=== PATIENT | male | born 1995 | race Caucasian/White ===

== ENCOUNTER 2017-11-07 02:59 | Emergency (ER) | payer OTHER ==
[~2017-11-07] VITALS: Ht 170.2 cm; Wt 72.1 kg
[2017-11-07 03:14] VITALS: Ht 170.2 cm; Wt 72.1 kg
[2017-11-07 04:05] VITALS: BP 138/82
== END 2017-11-07 04:05 | disposition home or self-care (01) ==
LOC: ED 02:59
DX: R00.2 Palpitations (principal); T43.611A Poisoning by caffeine, accidental (unintentional), initial encounter; F41.9 Anxiety disorder, unspecified

== ENCOUNTER 2018-07-22 21:37 | Emergency (ER) | payer OTHER ==
[~2018-07-22] VITALS: Ht 170.2 cm; Wt 71.9 kg
[2018-07-22 21:42] VITALS: Ht 170.2 cm; Wt 71.9 kg
[2018-07-22 23:07] VITALS: BP 151/82
== END 2018-07-22 23:07 | disposition home or self-care (01) ==
LOC: ED 21:37
DX: J02.9 Acute pharyngitis, unspecified (principal); R05 Cough; R06.02 Shortness of breath

== ENCOUNTER 2019-05-28 19:59 | Emergency (ER) | payer OTHER ==
[~2019-05-28] VITALS: Ht 170.2 cm; Wt 82.1 kg
[2019-05-28 20:25] VITALS: Ht 170.2 cm; Wt 82.1 kg
[2019-05-29 00:25] VITALS: BP 133/103
== END 2019-05-29 00:25 | disposition home or self-care (01) ==
LOC: ED 19:59
DX: J02.9 Acute pharyngitis, unspecified (principal)
CPT/HCPCS: 87804; J1100; J1885